=== PATIENT | male | born 1950 | race Caucasian/White ===

== ENCOUNTER → 2016-06-12 | Outpatient (CLI) | payer MEDICARE, OTHER ==
[~2016-06-12] MED LIST: ATORVASTATIN CA40 MG PO; COQ-10100 MG PO; COZAAR100 MG PO; FISH OIL 1,2001 EAC1 PO; LASIX40 MG PO; LEVOTHROID (S112 MCG PO; LOPRESSOR50 MG PO; MINOXIDIL2.5 MG PO; NORCO 5-325 TA1 EACH PO; NORVASC5 MG PO; PRAVACHOL40 MG PO; ROCALTROL0.25 MCG PO; SODIUM BICARBO650 MG PO; TYLENOL325 MG PO
== END | disposition disaster alternative care site (69) ==
LOC: LGSMG 11:34
DX: I12.9 Hypertensive chronic kidney disease with stage 1 through stage 4 chronic kidney disease, or unspecified chronic kidney disease (principal); E11.22 Type 2 diabetes mellitus with diabetic chronic kidney disease; N18.4 Chronic kidney disease, stage 4 (severe); E87.5 Hyperkalemia; E78.5 Hyperlipidemia, unspecified; E03.9 Hypothyroidism, unspecified; R80.9 Proteinuria, unspecified; Z92.29 Personal history of other drug therapy

== ENCOUNTER → 2016-08-15 | Outpatient (CLI) | payer MEDICARE, OTHER | END | disposition disaster alternative care site (69) | LOC: LGSMG 12:07 | DX: E11.9 Type 2 diabetes mellitus without complications (principal); E34.9 Endocrine disorder, unspecified; Z00.00 Encounter for general adult medical examination without abnormal findings; Z92.29 Personal history of other drug therapy; E87.5 Hyperkalemia; E78.5 Hyperlipidemia, unspecified; I10 Essential (primary) hypertension; I12.9 Hypertensive chronic kidney disease with stage 1 through stage 4 chronic kidney disease, or unspecified chronic kidney disease; R80.9 Proteinuria, unspecified ==

== ENCOUNTER → 2016-08-24 | Day surgery (SDC) | payer MEDICARE, OTHER ==
[~2016-08-24] VITALS: Ht 180.3 cm; Wt 102.3 kg
--- NOTE | ~2016-08-24 | OR ---
PATIENT'S NAME: LINDSAY MCGRAW [facility] AGE: 65 Y [address] ROOM: [place] [address] LOCATION: [facility] – [place], [place] ADMIT DATE: 08/24/2016 OR/Procedure Report DISCHARGE DATE: FAMILY PHYSICIAN: Ronald Mulligan MD ATTENDING PHYSICIAN: HAI ALFARO SURGEON: Hai Alfaro MD WEB PRESS JOGGER: DATE OF PROCEDURE: 08/24/2016 PREOPERATIVE DIAGNOSIS: End-stage renal disease. POSTOPERATIVE DIAGNOSIS: End-stage renal disease. PROCEDURE: Left arm brachiocephalic AV fistula. BENEFITS ASSISTANT: OR staff. ANESTHESIA: General. ESTIMATED BLOOD LOSS: 10 mL. OPERATIVE FINDINGS: Good thrill and bruit in the fistula. Strong radial and ulnar signal at the end of the case. DESCRIPTION OF PROCEDURE: The patient was brought to the operating room, placed under general anesthesia, prepped and draped in a sterile manner. Preoperative time-out was performed. The patient received preoperative antibiotics. We made a standard incision 2 cm proximal to the antecubital fossa, dissected down the fascia, incised the fascia in a longitudinal manner, dissected out the brachial artery in a 360-degree fashion. We then dissected out the cephalic vein and relatively was connected to the basilic vein by medial junction vein. We decided to transect the basilic vein and used that for anastomosis and allowed for the outflow through the cephalic. We gave 5000 units of heparin. We made an arteriotomy after clamping on the arteries to a size of 4 mm and did a standard 6-0 Prolene anastomosis from the vein to the artery. We removed the clamps. There was excellent flow in the fistula. There was a strong thrill signal. There was a strong radial and ulnar signal at the end of the case. Heparin was reversed with protamine. Thrombin was used locally in the wound. Deep layers were closed with 2-0 and 3-0 Vicryl. Skin was closed with running 4-0 Monocryl. The patient tolerated the procedure well and transferred to recovery room and home later that day. PATIENT'S NAME: LINDSAY MCGRAW [facility] AGE: 65 Y [address] ROOM: [place], [place] [address] LOCATION: [facility] – [place], [place] ADMIT DATE: 08/24/2016 OR/Procedure Report DISCHARGE DATE: FAMILY PHYSICIAN: Ronald Mulligan MD ATTENDING PHYSICIAN: HAI ALFARO MD FKM/modl /[id number] d: 08/24/166 t: 08/25/16 1001, OPERATIVE SUMMARY
[2016-08-24 11:53] LABS: BASOPHIL # 0.1 K/uL (0.0-0.2); BASOPHIL % 1.2 %; EOSINOPHIL # 0.2 K/uL (0.0-0.5); EOSINOPHIL % 3.8 %; HEMATOCRIT 39.3 % (37.0-53.0); HEMOGLOBIN 12.7 g/dL (11.0-16.0); IMMATURE GRANULOCYTE % 0.2 %; LYMPHOCYTE # 1.3 K/uL (0.8-4.0); LYMPHOCYTE % 21.4 %; MCHC 32.3 gm/dL (32.0-36.5); MCV 95.9 fl (83.0-98.0); MONOCYTE # 0.4 K/uL (0.0-1.0); MONOCYTE % 7.3 %; MPV 10.4 fl (9.4-12.4); NEUTROPHIL % 66.1 %; NRBC % 0 /100WBC (0-0.00); PLATELET COUNT 209 K/uL (150-450); RDW-CV 13.1 % (11.9-14.6)
[2016-08-24 13:52] LABS: ALBUMIN 3.6 gm/dL (3.5-5.0); CALCIUM 7.7 mg/dL (8.5-10.5); POTASSIUM 5.3 mMol/L (3.7-5.1); TOTAL BILIRUBIN 0.3 mg/dL (0.0-1.5); TOTAL PROTEIN 7.5 g/dL (6.0-8.4)
[2016-08-24 13:53] LABS: ANION GAP 13.3 (10.0-19.0)
== END | disposition disaster alternative care site (69) ==
LOC: GPOC 08-23 13:00 → GSDC 11:12 → GPOC 11:30
PROVIDERS: Surgery Vascular Surgery
PROC: 031 Upper Arteries, Bypass (ICD-10-PCS; principal; 2016-08-24)
DX: E11.22 Type 2 diabetes mellitus with diabetic chronic kidney disease (principal); I12.0 Hypertensive chronic kidney disease with stage 5 chronic kidney disease or end stage renal disease; N18.6 End stage renal disease; E87.5 Hyperkalemia; E78.5 Hyperlipidemia, unspecified; M19.90 Unspecified osteoarthritis, unspecified site; R00.1 Bradycardia, unspecified; Z88.8 Allergy status to other drugs, medicaments and biological substances; Z87.891 Personal history of nicotine dependence; Z98.890 Other specified postprocedural states; Z79.899 Other long term (current) drug therapy
CPT/HCPCS: J0690; J1644; J2405; J2720; J7030

== ENCOUNTER → 2016-09-07 | Day surgery (SDC) | payer MEDICARE, OTHER ==
[~2016-09-07] VITALS: Ht 180.3 cm; Wt 103.2 kg
--- NOTE | ~2016-09-07 | OR ---
PATIENT'S NAME: LINDSAY MCGRAW [facility] AGE: 66 Y [address] ROOM: [place] [address] LOCATION: [facility] – [place] ADMIT DATE: 09/07/2016 OR/Procedure Report DISCHARGE DATE: FAMILY PHYSICIAN: Ronald Mulligan MD ATTENDING PHYSICIAN: Nando Briscoe SURGEON: Nando Briscoe MD AGRICULTURAL EDUCATION TEACHER: DATE OF PROCEDURE: 09/07/2016 PREOPERATIVE DIAGNOSES: 1. Basal cell carcinoma, upper chest. 2. Basal cell carcinoma, posterior neck. PROCEDURE: Excision of basal cell, chest and posterior neck. FINDINGS: Margins were grossly negative. ESTIMATED BLOOD LOSS: 30 mL. COMPLICATIONS: None. INDICATIONS: The patient is a 66-year-old male, who recently had excision of a lesion on his chest. This was identified as a basal cell. Margins were positive. We discussed repeat excision of this. He also had a small lesion on his posterior neck that had shown some regression, but a punch biopsy of this revealed basal cell as well. Because of this, we discussed excision of each of these areas with the patient; the risks, benefits, and alternatives, and he elected to proceed. DESCRIPTION OF PROCEDURE: The patient was taken to the operating room. When he was supine, given IV sedation and subsequently intubated. His chest was prepped with ChloraPrep and sterilely draped. Local anesthetic was infiltrated overlying his previous scar. An elliptical incision was created around the scar. There was no evidence of gross disease. The length of excision was approximately 8 centimeters. This was marked for orientation. The incision had been carried into the subcutaneous tissues and completely removed with electrocautery. Once completed, again the specimen was marked for orientation. Hemostasis was checked, had been obtained. Deep dermal layers were approximated with 3-0 Vicryl suture and skin closure with 4-0 Prolene suture. Following this, the patient was placed prone. His neck was cleansed with ChloraPrep and sterilely draped. The lesion was identified. An elliptical incision was created around this and approximately 7 centimeter excision was performed. This was carried into the subcutaneous tissues and removed with electrocautery. This was also marked for orientation. The operative field was inspected. It appeared hemostatic. Deep dermal layers PATIENT'S NAME: LINDSAY MCGRAW [facility] AGE: 66 Y [address] ROOM: [place] [address] LOCATION: [facility] [place] ADMIT DATE: 09/07/2016 OR/Procedure Report DISCHARGE DATE: FAMILY PHYSICIAN: Ronald Mulligan MD ATTENDING PHYSICIAN: Nando Briscoe were approximated with 3-0 Vicryl suture and closure of the skin with 4-0 Prolene suture. Sterile dressings were placed. The patient was extubated and sent to recovery in good condition. MD JOSE BELTRAN/carll /[id number] d: 09/07/16 1735 t: 09/19/164, OPERATIVE SUMMARY
== END | disposition disaster alternative care site (69) ==
LOC: GPOC 08-31 09:00 → GSDC 05:46
PROC: 0HB5XZZ Excision of Chest Skin, External Approach (ICD-10-PCS; principal; 2016-09-07)
PROC: 0HB4XZZ Excision of Neck Skin, External Approach (ICD-10-PCS; 2016-09-07)
DX: C44.519 Basal cell carcinoma of skin of other part of trunk (principal); C44.41 Basal cell carcinoma of skin of scalp and neck; E11.22 Type 2 diabetes mellitus with diabetic chronic kidney disease; I12.9 Hypertensive chronic kidney disease with stage 1 through stage 4 chronic kidney disease, or unspecified chronic kidney disease; N18.4 Chronic kidney disease, stage 4 (severe); E83.51 Hypocalcemia; R00.1 Bradycardia, unspecified; E87.5 Hyperkalemia; E78.5 Hyperlipidemia, unspecified; Z79.899 Other long term (current) drug therapy; Z88.8 Allergy status to other drugs, medicaments and biological substances; Z98.890 Other specified postprocedural states; Z87.891 Personal history of nicotine dependence
CPT/HCPCS: J0690; J2001; J7120

== ENCOUNTER → 2016-09-27 | Outpatient (CLI) | payer MEDICARE, OTHER | LOC: LGSMG 16:29 | DX: Z00.00 Encounter for general adult medical examination without abnormal findings (principal); E11.9 Type 2 diabetes mellitus without complications; Z92.29 Personal history of other drug therapy; E87.5 Hyperkalemia; I12.9 Hypertensive chronic kidney disease with stage 1 through stage 4 chronic kidney disease, or unspecified chronic kidney disease; E83.51 Hypocalcemia; N18.4 Chronic kidney disease, stage 4 (severe); R80.9 Proteinuria, unspecified ==

== ENCOUNTER → 2016-11-20 | Outpatient (CLI) | payer MEDICARE, OTHER | LOC: LGSMG 11:36 | DX: Z00.00 Encounter for general adult medical examination without abnormal findings (principal); Z92.29 Personal history of other drug therapy; E87.5 Hyperkalemia; I12.9 Hypertensive chronic kidney disease with stage 1 through stage 4 chronic kidney disease, or unspecified chronic kidney disease; E83.51 Hypocalcemia; N18.4 Chronic kidney disease, stage 4 (severe); E03.9 Hypothyroidism, unspecified; R80.9 Proteinuria, unspecified ==